=== PATIENT | male | born 1955 | race Caucasian/White ===

== ENCOUNTER 2022-09-15 13:26 | Observation (INO) ==
--- NOTE | 2022-09-15 13:36 | DR.SOBA ---
HPI Time Seen Time Seen by Provider: 09/15/22 13:34 Primary Care Physician Primary Care Physician: JEAN Complaints Chief Complaint Doctors Comments: 67 y/o male presents with worsening shortness of breath. + h/o weak heart, recently hoospitalized for fluid overload. Was switched from lasix to bumex, not helping. Having dyspnea with laying flat, only sleeps on 1 pillow. + dyspnea with exertion, legs have been swollen. 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 Denies fever, chills. No vomiting, diarrhea. + sinus congestion, loose cough. Chief Complaint:: PT'S DAUGHTER STATES PT WAS SEEN SATURDAY BY THE PLASTIC WELDER AND SINCE THEN HE HAS BEEN "FILLING FULL OF FLUID AND IS HAVING SOME BAD SOB." PT STATES" I FEEL LIKE I AM GOING TO ." PT HAS SOME EDEMA NOTED TO BOTH LOWER EXT. LUNGS CLEAR BILATERAL. COVID-19 Coronavirus risk:travel/contact w/high risk person: No Has patient experienced Coronavirus symptoms: No Reviewed Nurses Notes Reviewed: Yes Source History Provided: Patient Mode of Arrival Mode of Arrival: Ambulatory Timing Onset of Chief Complaint: 08/25/22 PMH PMH Past Medical History: Yes Past Medical History: Anemia, Angina, Anxiety, COPD, Depression, Hypertension and Renal Disease Past Surgical History: Yes Surgical History: Angioplasty/Stents, Cholecystectomy and Ortho Surgery Past Surgical History Comment: RIGHT KIDNEY REMOVED Family History History of Family Medical Conditions: Yes Family Medical History: [place], Coronary Artery Disease, Heart Failure and Sudden Cardiac Social History Does patient currently use any type of tobacco product: Yes Have you used tobacco products in the last 12 months: Yes Type of Tobacco Use: Cigarettes Does any household member use tobacco: Yes Alcohol Use: None Do you use any recreational Drugs:: No Lives With: Family Lives Where: Home Travel Risk Coronavirus risk:travel/contact w/high risk person: No Has patient experienced Coronavirus symptoms: No Infectious screening In the last 2 months have you had wt loss of >10#?: NO Have you had fever, night sweats or hemotysis?: No Have you traveled outside the country in the last 6 months?: No Isolation: Standard ROS Review of Systems Constitutional: Weakness; negative Fever Eyes: No Symptoms Reported Respiratoy: Short of Breath Cardiovascular: Edema Gastrointestinal/Abdominal: No Symptoms Reported Genitourinary: No Symptoms Reported Neurological: Weakness Musculoskeletal: No Symptoms Reported Integumentary: No Symptoms Reported Psychiatric: No Symptoms Reported All Other Systems: Reviewed and Negative PE Vital Signs Vitals: Temperature 98.2 F Pulse Rate 87 Respiratory Rate 25 Blood Pressure 150/84 O2 Sat by Pulse Oximetry 100 General General Appearance: Alert and In No Apparent Distress Eyes Eye exam: PERRL and EOMI Neck Neck Exam: Other (+ JVD); negative Tenderness Respiratory Respiratory Exam: Other (+ bibasilar rales, R > L); negative Accessory Muscle Use or Respiratory Distress Cardiovascular Cardiovascular Exam: Regular Rate, Normal Rhythm and Systolic Murmur (3/6) Abdominal Exam Abdominal Exam: Normal Bowel Sounds and Soft; negative Tenderness Extremities Extremities Exam: Edema (2+, bilateral lower) Neurologic Neurological Exam: Alert, Oriented X3 and CN II-XII Intact; negative Motor Sensory Deficit Skin Skin Exam: Warm and Dry COURSE Treatment Treatment: 67 y/o male with h/o cardiomyopathy, CHF, presents with apparent exacerbatiob of CHF. W/u initiated. CXR with cardiomegaly, + pulmonary edema, small R pleural effusion. Givne IV lasix, 40 mg. LAbs show BNP > 5,000. H/o sole kidney, due to previous nephrectomy for Ca. Recommend admission for further treatment. Discussed with Dr Willams, covering for admissions, accepts the admmission. ROR Labs Reviewed Result Diagrams: 09/15/22 13:35 09/15/22 13:35 Laboratory: WBC 6.4 X10^3/uL (3.6-10.0) 09/15/22 13:35 RBC 2.76 X10^6/uL (4.7-6.0) L 09/15/22 13:35 Hgb 8.2 g/dL (13.5-18.0) L 09/15/22 13:35 Hct 24.1 % (42.0-54.0) L 09/15/22 13:35 MCV 87.3 fL (80.0-100.0) 09/15/22 13:35 MCH 29.6 pg (27.0-34.0) 09/15/22 13:35 MCHC 33.9 g/dL (33.0-35.0) 09/15/22 13:35 RDW 15.1 % (11.6-16.5) 09/15/22 13:35 Plt Count 201 X10^3/uL (150.0-450.0) 09/15/22 13:35 MPV 7.6 fL (7.4-11.0) 09/15/22 13:35 Neut % (Auto) 81.0 % (42.0-75.0) H 09/15/22 13:35 Lymph % (Auto) 12.4 % (21.0-51.0) L 09/15/22 13:35 [place] % (Auto) 5.2 % (0.0-13.0) 09/15/22 13:35 Eos % (Auto) 1.0 % (0.9-2.9) 09/15/22 13:35 Baso % (Auto) 0.4 % (0.2-1.0) 09/15/22 13:35 Neut # (Auto) 5.2 x10^3/uL (2.2-4.8) H 09/15/22 13:35 Lymph # (Auto) 0.8 X10^3/uL (1.3-2.9) L 09/15/22 13:35 [place] # (Auto) 0.3 x10^3/uL (0.3-0.8) 09/15/22 13:35 Eos # (Auto) 0.1 x10^3/uL (0.0-0.2) 09/15/22 13:35 Baso # (Auto) 0.0 X10^3/uL (0.0-0.1) 09/15/22 13:35 Absolute Nucleated RBC 0.0 /100WBC 09/15/22 13:35 Sodium 139 mmol/L (136-145) 09/15/22 13:35 Corrected Sodium 145 mmol/L (136-145) 09/15/22 13:35 Potassium 3.8 mmol/L (3.5-5.1) 09/15/22 13:35 Chloride 100 mmol/L (98-107) 09/15/22 13:35 Carbon Dioxide 30.7 mmol/L (21-32) 09/15/22 13:35 BUN 30 mg/dL (7-18) H 09/15/22 13:35 Creatinine 2.11 mg/dL (0.70-1.30) H 09/15/22 13:35 Est GFR (MDRD) Af Amer 40 (>60) L 09/15/22 13:35 Est GFR (MDRD) Non-Af 33 (>60) L 09/15/22 13:35 Glucose 360 mg/dL (65-99) H 09/15/22 13:35 Calcium 8.3 mg/dL (8.5-10.1) L 09/15/22 13:35 Corrected Calcium 9.7 mg/dL (8.5-10.1) 09/15/22 13:35 Total Bilirubin 0.40 mg/dL (0.2-1.0) 09/15/22 13:35 AST 9 Units/L (15-37) L 09/15/22 13:35 ALT 10 Units/L (12-78) L 09/15/22 13:35 Alkaline Phosphatase 130 Units/L (46-116) H 09/15/22 13:35 Troponin I High Sens 39.8 ng/L (4.0-60.0) 09/15/22 13:35 B-Natriuretic Peptide > 5000 pg/mL (0-79) H* 09/15/22 13:35 Total Protein 6.8 g/dL (6.4-8.2) 09/15/22 13:35 Albumin 2.2 g/dL (3.4-5.0) L 09/15/22 13:35 Globulin 4.6 g/dL (2.5-4.5) H 09/15/22 13:35 Albumin/Globulin Ratio 0.5 Ratio (1.1-2.1) L 09/15/22 13:35 EKG Rate: 89 [place]: LAD Rhythm: NSR Block: RBBB and IVCD ST: Nonsp Opioid Opioid Risk Tool Age (Evans box if 16-45): No History of Preadolescent Sexual Abuse: No Total: 0 Total Score Risk Category: Low Risk Copyright: Carmelo RANDOLPH predicting aberrant behaviors Discharge Plan Diagnosis Discharge Problem: Acute exacerbation of CHF (congestive heart failure) Discharge Plan Patient Disposition: 09 ADMITTED INPATIENT Condition: Stable Prescriptions: No Action furosemide 40 mg tablet 1 tab PO BID carvedilol 6.25 mg tablet 1 tab PO BID clopidogrel 75 mg tablet 1 tab PO QDAY nitroglycerin 0.4 mg/hr patch 24 hour 1 patch BID nitroglycerin 0.4 mg tablet, sublingual 1 tab sublingual [id number], Q2HX4, Q4H PRN (Reason: Chest Pain) bumetanide 1 mg tablet 1 tab PO QDAY potassium chloride 10 mEq tablet,ER particles/crystals 1 tab PO BID Entresto 24-26 mg tablet 1 tab PO BID atorvastatin 80 mg tablet 1 tab PO QDAY amlodipine 5 mg tablet 1 tab PO QDAY tamsulosin 0.4 mg capsule 1 cap PO QDAY lansoprazole 30 mg capsule,delayed release(DR/EC) 1 cap PO QDAY levothyroxine 112 mcg tablet 1 tab PO QAM escitalopram oxalate 10 mg tablet 1 tab PO QDAY bupropion HCl 150 mg tablet extended release 24 hr 1 tab PO QAM insulin glargine [Lantus Solostar U-100 Insulin] 100 unit/mL (3 mL) insulin pen 15 unit SUBCUT BID Health Concerns: Post Hospitalization: new medications and changes needed to prevent readmission or further decline. Pt educated and given instructions on all concerns. Plan of Treatment: Continue with present treatment and follow up plan. Pt is to keep follow up ap pointment as instructed and take medications as ordered. Orders to Discharge Patient Discharge Orders: Transfer (Routine); Ordered 09/15/22 Ordered By: Carlos Alberto Spencer Follow ups/Referrals Follow ups/Referrals: MDMisc [Primary Care Provider] - 3 days
--- NOTE | 2022-09-15 13:55 | EKG ---
Test Reason : dyspnea Blood Pressure : */* mmHG Vent. Rate : 89 BPM Atrial Rate : * BPM P-R Int : * ms QRS Dur : 134 ms QT Int : 402 ms P-R-T Axes : * -63 50 degrees QTc Int : 489 ms Normal sinus rhythm Left axis deviation Right bundle branch block Abnormal ECG No previous ECGs available Confirmed by Lyle Penny ([id number]) on 09/15/2022 3:20:35 PM Referred By: Confirmed By: Lyle Penny
[2022-09-15 14:03] LABS: BASOPHILS % (AUTO) 0.4 % (0.2-1.0); EOSINOPHILS # (AUTO) 0.1 x10^3/uL (0.0-0.2); HEMATOCRIT 24.1 % (42.0-54.0); HEMOGLOBIN 8.2 g/dL (13.5-18.0); LYMPHOCYTES # (AUTO) 0.8 X10^3/uL (1.3-2.9); LYMPHOCYTES % (AUTO) 12.4 % (21.0-51.0); MEAN CORPUSCULAR HEMOGLOBIN 29.6 pg (27.0-34.0); MEAN CORPUSCULAR HGB CONC 33.9 g/dL (33.0-35.0); MEAN CORPUSCULAR VOLUME 87.3 fL (80.0-100.0); MEAN PLATELET VOLUME 7.6 fL (7.4-11.0); MONOCYTES # (AUTO) 0.3 x10^3/uL (0.3-0.8); MONOCYTES % (AUTO) 5.2 % (0.0-13.0); NEUTROPHILS # (AUTO) 5.2 x10^3/uL (2.2-4.8); RED BLOOD COUNT 2.76 X10^6/uL (4.7-6.0); RED CELL DISTRIBUTION WIDTH 15.1 % (11.6-16.5); WHITE BLOOD COUNT 6.4 X10^3/uL (3.6-10.0)
[2022-09-15 14:16] LABS: ALANINE AMINOTRANSFERASE 10 Units/L (12-78); ALBUMIN 2.2 g/dL (3.4-5.0); ALKALINE PHOSPHATASE 130 Units/L (46-116); ASPARTATE AMINO TRANSFERASE 9 Units/L (15-37); BLOOD UREA NITROGEN 30 mg/dL (7-18); CALCIUM 8.3 mg/dL (8.5-10.1); CARBON DIOXIDE 30.7 mmol/L (21-32); CHLORIDE 100 mmol/L (98-107); COR CA(FOR HYPOALB) 9.7 mg/dL (8.5-10.1); COR NA(FOR HYPERGLY) 145 mmol/L (136-145); CREATININE 2.11 mg/dL (0.70-1.30); SODIUM 139 mmol/L (136-145); TOTAL PROTEIN 6.8 g/dL (6.4-8.2); eGFR NON BLACK RACES 33 (>60)
[2022-09-15] MEDS ORDERED: LASIX IVP ONE ×2 (14:17→14:18)
[2022-09-15] MEDS ORDERED: TYLENOL 500 MG TAB EXTRA STRENGTH PO ONE ×2 (14:30→14:33)
--- NOTE | 2022-09-15 14:55 | RAD ---
HISTORYSOBSTUDYAP chestCOMPARISONNoneFINDINGSMarked cardiac enlargement with sternal wires. The pulmonary vessels are significantly distended and indistinct with a diffuse interstitial density throughout the lungs right greater than left.IMPRESSIONCardiomegaly with CHF/edema. Suspect small right pleural effusion.Electronically signed by: YASMEEN PABON (Sep 15, 2022 14:53:56)
[2022-09-15 18:13] VITALS: BMI 24.5
[2022-09-15] MEDS: NICOTINE PATCH TD SCH (19:00)
[2022-09-16] MEDS: NORCO 5/325 MG TAB PO PRN ×2 (01:44→13:29)
[2022-09-16 04:56] LABS: BASOPHILS % (AUTO) 0.2 % (0.2-1.0); EOSINOPHILS # (AUTO) 0.1 x10^3/uL (0.0-0.2); EOSINOPHILS % (AUTO) 1.1 % (0.9-2.9); HEMATOCRIT 21.1 % (42.0-54.0); HEMOGLOBIN 7.2 g/dL (13.5-18.0); LYMPHOCYTES # (AUTO) 0.9 X10^3/uL (1.3-2.9); LYMPHOCYTES % (AUTO) 14.5 % (21.0-51.0); MEAN CORPUSCULAR HEMOGLOBIN 29.4 pg (27.0-34.0); MEAN CORPUSCULAR HGB CONC 33.9 g/dL (33.0-35.0); MEAN CORPUSCULAR VOLUME 86.5 fL (80.0-100.0); MEAN PLATELET VOLUME 7.6 fL (7.4-11.0); MONOCYTES # (AUTO) 0.4 x10^3/uL (0.3-0.8); MONOCYTES % (AUTO) 6.4 % (0.0-13.0); NEUTROPHILS % (AUTO) 77.8 % (42.0-75.0); RED BLOOD COUNT 2.44 X10^6/uL (4.7-6.0); RED CELL DISTRIBUTION WIDTH 15.7 % (11.6-16.5); WHITE BLOOD COUNT 6.4 X10^3/uL (3.6-10.0)
[2022-09-16 05:19] LABS: ALBUMIN 1.9 g/dL (3.4-5.0); CALCIUM 8.2 mg/dL (8.5-10.1); CARBON DIOXIDE 29.1 mmol/L (21-32); COR CA(FOR HYPOALB) 9.9 mg/dL (8.5-10.1); CREATININE 1.98 mg/dL (0.70-1.30)
[2022-09-16] MEDS: NovoLIN R (or HumuLIN R) SC PRN ×2 (06:17→17:11)
[2022-09-16] MEDS: NICOTINE PATCH TD SCH (09:43)
--- NOTE | 2022-09-16 11:32 | DR.H&P ---
H&P - History & Physical for Day of: H&P Date: 09/15/22 - Chief Complaint Chief Complaint: SOB - History of Present Illness History of Present Illness: PT IS 67 WM, ER ADMISSION AFTER PRESENTING WITH CO SOB AND SWELLING. PT'S DAUGHTER STATES PT WAS SEEN SATURDAY BY THE LEG MAN AND SINCE THEN HE HAS BEEN "FILLING FULL OF FLUID AND IS HAVING SOME BAD SOB." PT STATES" I FEEL LIKE I AM GOING TO ." PT HAS SOME EDEMA NOTED TO BOTH LOWER EXT. PT REPORTS HE HAD CABG 8 YEAR AGO. - Past Medical History Past Medical History: Anemia, Angina, Anxiety, Arthritis, CHF, COPD, Depression, Hypertension, Renal Disease - Past Surgical History Surgical History: Angioplasty/Stents, Cholecystectomy, Ortho Surgery - Family History Family Medical History: Diabetes Mellitus, Coronary Artery Disease, Heart Failure, Hypertension - Social History Does patient currently use any type of tobacco product: Yes Have you used tobacco products in the last 12 months: Yes Type of Tobacco Use: Cigarettes Does any household member use tobacco: No Alcohol Use: None Drug Use: None - Medications Home Medications: No Known Allergies Allergy (Verified 09/15/22 13:27) CONTINUE taking the following medications amlodipine 5 mg tablet 1 tab PO QDAY 09/15/22 [History] atorvastatin 80 mg tablet 1 tab PO QDAY 09/15/22 [History] bumetanide 1 mg tablet 1 tab PO QDAY 09/15/22 [History] bupropion HCl 150 mg 24 hr tablet, extended release 1 tab PO QAM 09/15/22 [History] carvedilol 6.25 mg tablet 1 tab PO BID 09/15/22 [History] clopidogrel 75 mg tablet 1 tab PO QDAY 09/15/22 [History] escitalopram oxalate 10 mg tablet 1 tab PO QDAY 09/15/22 [History] furosemide 40 mg tablet 1 tab PO BID 09/15/22 [History] insulin glargine 100 unit/mL (3 mL) subcutaneous pen (Lantus Solostar U-100 Insulin) 15 unit subcut BID 09/15/22 [History] lansoprazole 30 mg capsule,delayed release 1 cap PO QDAY 09/15/22 [History] levothyroxine 112 mcg tablet 1 tab PO QAM 09/15/22 [History] nitroglycerin 0.4 mg sublingual tablet 1 tab sublingual [id number], Q2HX4, Q4H PRN Chest Pain 09/15/22 [History] nitroglycerin 0.4 mg/hr transdermal 24 hour patch 1 patch BID 09/15/22 [History] potassium chloride 10 mEq tablet,extended release(part/cryst) 1 tab PO BID 09/15/22 [History] sacubitril 24 mg-valsartan 26 mg tablet (Entresto) 1 tab PO BID 09/15/22 [History] tamsulosin 0.4 mg capsule 1 cap PO QDAY 09/15/22 [History] - Review of Systems Constitutional: No Symptoms Reported Eyes: No Symptoms Reported ENT: No Symptoms Reported Respiratory: Shortness of Breath, SOB with Excertion Cardiovascular: Edema Gastrointestinal: No Symptoms Reported Genitourinary: No Symptoms Reported Musculoskeletal: Neck Pain Skin: No Symptoms Reported Neurological: No Symptoms Reported - Physical Exam Vital Signs: Temperature 98.1 F Pulse Rate [Left Radial] 98 Pulse Rate 77 Respiratory Rate 20 Blood Pressure [Right Arm] 120/76 Blood Pressure 139/64 O2 Sat by Pulse Oximetry 91 Oriented: Normal Eyes: Normal Ear: Normal Nose: Normal Throat: Normal Respiratory: Wheezes Throughout (MILD DIFFUSE EXPIRATORY WHEEZES), RLL Diminished, LLL Diminished Cardiovascular: Normal, Edema : Normal Auscultation: Bowel Sounds: Normal Palpation: Normal Tenderness: Normal Skin: Decreased Turgur Musculoskeletal: Tender (CSPINE) Psychiatric: Anxiety Mood Description: Anxious Affect: Anxious Speech Pattern: Clear, Appropriate - Assessment/Plan (1) SOB (shortness of breath) Status: Acute Plan: ADMIT, CXR ON ADMISSION. SUPPLEMENTAL O2, IV LASIX, STRICT I&OS. VERIFY HOME MEDICATION, REPEAT AM CXR. CARDIAC ENZYMES AND EKG, CONTINUOUS TELEMETRY (2) CAD (coronary artery disease) Status: Acute (3) COPD (chronic obstructive pulmonary disease) Status: Acute (4) Hypertension Status: Acute (5) Acute exacerbation of CHF (congestive heart failure) Status: Acute - Allergies Allergies/Adverse Reactions: Allergies Allergy/AdvReac Type Severity Reaction Status Date / Time No Known Allergies Allergy Verified 09/15/22 13:27
--- NOTE | 2022-09-16 11:35 | PCM.PROG ---
Progress Note - Progress Note for Day of Date of Exam: 09/16/22 - Subjective Subjective: PT IS 67 WM, ER ADMISSION YESTERDAY WITH SOB AND EDEMA. PT HAS PMH OF CHF, CXR ON ADMISSION REVEALED CHF EXACERBATION. PT'S HOME MEDICATION INCLUDING STATIN, BB AND ENTRESTO RESUMED. PT IS ON IV LASIX WITH STRICT I&OS. PT WAS NOTED TO HAVE A DECREASED HGB THIS AM. WE ORDERED AN ANEMIA PANEL AND OCCULT STOOL. WILL START ON PO IRON REPLACEMENT AND CONSULT PHARMACY FOR IV IRON INFUSION. PT WILL HAVE REPEAT HBG AT 1300. - Past Medical Family Social History Past Med/Fam/Surg Hx: No changes since H&P Allergies: Allergies No Known Allergies Allergy (Verified 09/15/22 13:27) - Review of Systems ROS: No change since H&P - Vital Signs and I&O's Vital Signs: Temperature 98.1 F Pulse Rate [Left Radial] 98 Pulse Rate 77 Respiratory Rate 20 Blood Pressure [Right Arm] 120/76 Blood Pressure 139/64 O2 Sat by Pulse Oximetry 91 Intake and Output: Intake & Output 09/13/22 09/14/22 09/15/22 09/16/22 11:59 11:59 11:59 11:59 Intake Total 1000 / 1000 Output Total 200 / 200 Balance 800 / 800 - Physical Exam Oriented: Normal Eyes: Normal Ear: Normal Nose: Normal Throat: Normal Respiratory: Diminished, Wheezes Cardiovascular: Normal, Edema : Normal Auscultation: Bowel Sounds: Normal Tenderness: Normal Skin: Decreased Turgur Musculoskeletal: Tender (CSPINE) Psychiatric: Anxiety Mood Description: Anxious Affect: Anxious Speech Pattern: Clear, Appropriate - Laboratory and Diagnostics Result Diagrams: 09/16/22 04:38 09/16/22 04:38 Labs: Laboratory WBC 6.4 X10^3/uL (3.6-10.0) 09/16/22 04:38 RBC 2.44 X10^6/uL (4.7-6.0) L 09/16/22 04:38 Hgb 7.2 g/dL (13.5-18.0) L 09/16/22 04:38 Hct 21.1 % (42.0-54.0) L 09/16/22 04:38 MCV 86.5 fL (80.0-100.0) 09/16/22 04:38 MCH 29.4 pg (27.0-34.0) 09/16/22 04:38 MCHC 33.9 g/dL (33.0-35.0) 09/16/22 04:38 RDW 15.7 % (11.6-16.5) 09/16/22 04:38 Plt Count 196 X10^3/uL (150.0-450.0) 09/16/22 04:38 MPV 7.6 fL (7.4-11.0) 09/16/22 04:38 Neut % (Auto) 77.8 % (42.0-75.0) H 09/16/22 04:38 Lymph % (Auto) 14.5 % (21.0-51.0) L 09/16/22 04:38 [place] % (Auto) 6.4 % (0.0-13.0) 09/16/22 04:38 Eos % (Auto) 1.1 % (0.9-2.9) 09/16/22 04:38 Baso % (Auto) 0.2 % (0.2-1.0) 09/16/22 04:38 Neut # (Auto) 5.0 x10^3/uL (2.2-4.8) H 09/16/22 04:38 Lymph # (Auto) 0.9 X10^3/uL (1.3-2.9) L 09/16/22 04:38 [place] # (Auto) 0.4 x10^3/uL (0.3-0.8) 09/16/22 04:38 Eos # (Auto) 0.1 x10^3/uL (0.0-0.2) 09/16/22 04:38 Baso # (Auto) 0.0 X10^3/uL (0.0-0.1) 09/16/22 04:38 Absolute Nucleated RBC 0.0 /100WBC 09/16/22 04:38 Sodium 138 mmol/L (136-145) 09/16/22 04:38 Corrected Sodium 143 mmol/L (136-145) 09/16/22 04:38 Potassium 3.7 mmol/L (3.5-5.1) 09/16/22 04:38 Chloride 101 mmol/L (98-107) 09/16/22 04:38 Carbon Dioxide 29.1 mmol/L (21-32) 09/16/22 04:38 BUN 29 mg/dL (7-18) H 09/16/22 04:38 Creatinine 1.98 mg/dL (0.70-1.30) H 09/16/22 04:38 Est GFR (MDRD) Af Amer 43 (>60) L 09/16/22 04:38 Est GFR (MDRD) Non-Af 36 (>60) L 09/16/22 04:38 Glucose 317 mg/dL (65-99) H 09/16/22 04:38 Calcium 8.2 mg/dL (8.5-10.1) L 09/16/22 04:38 Corrected Calcium 9.9 mg/dL (8.5-10.1) 09/16/22 04:38 Iron 16 ug/dL (50-175) L 09/16/22 04:38 Transferrin 121 mg/dL (202-364) L 09/16/22 04:38 Ferritin 330 ng/mL (26-388) 09/16/22 04:38 Total Bilirubin 0.50 mg/dL (0.2-1.0) 09/16/22 04:38 AST 9 Units/L (15-37) L 09/16/22 04:38 ALT 9 Units/L (12-78) L 09/16/22 04:38 Alkaline Phosphatase 123 Units/L (46-116) H 09/16/22 04:38 Troponin I High Sens 39.8 ng/L (4.0-60.0) 09/15/22 13:35 B-Natriuretic Peptide > 5000 pg/mL (0-79) H* 09/16/22 04:38 Total Protein 6.0 g/dL (6.4-8.2) L 09/16/22 04:38 Albumin 1.9 g/dL (3.4-5.0) L 09/16/22 04:38 Globulin 4.1 g/dL (2.5-4.5) 09/16/22 04:38 Albumin/Globulin Ratio 0.5 Ratio (1.1-2.1) L 09/16/22 04:38 Vitamin B12 623 pg/mL (193-986) 09/16/22 04:38 Folate 11.9 ng/mL (>8.6) 09/16/22 04:38 - Plan (1) SOB (shortness of breath) Status: Acute Plan: REPEAT CXR, ANEMIA PANEL AND OCCULT STOOL. IRON REPLACEMENT THERAPY, FU H&H. SUPPLEMENTAL O2, IV LASIX, STRICT I&OS. VERIFY HOME MEDICATION,. CARDIAC ENZYMES AND EKG, CONTINUOUS TELEMETRY (2) CAD (coronary artery disease) Status: Acute (3) COPD (chronic obstructive pulmonary disease) Status: Acute (4) Hypertension Status: Acute (5) Acute exacerbation of CHF (congestive heart failure) Status: Acute
[2022-09-16] MEDS ORDERED: LEXAPRO ONE (12:25)
--- NOTE | 2022-09-16 12:46 | RAD ---
HISTORYCHF SOBSTUDYPortable AP chestCOMPARISONApril 2022FINDINGSSimilar cardiomegaly, extensive pulmonary vascular dilatation with bilateral pulmonary edema. Probable right pleural effusion. The findings remain consistent with advanced CHF.IMPRESSIONNo change.Electronically signed by: YASMEEN PABON (Sep 16, 2022 12:45:12)
[2022-09-16] MEDS: HEMOCYTE-PLUS PO SCH (13:18)
[2022-09-16] MEDS: ENTRESTO 24/26 MG TABLET PO SCH ×2 (13:18→21:14)
[2022-09-16] MEDS: PLAVIX PO SCH (13:18)
[2022-09-16] MEDS: LEXAPRO PO SCH (13:19)
[2022-09-16] MEDS: COREG TAB 6.25 MG PO SCH ×2 (13:19→21:14)
[2022-09-16] MEDS: PROTONIX INJ 40 MG VIAL IVP SCH (13:19)
[2022-09-16] MEDS: LASIX IVP SCH (16:53)
[2022-09-16] MEDS: MICRO K EXTEN CAP 10 MEQ PO SCH (17:02)
--- NOTE | 2022-09-16 20:41 | RAD ---
HISTORYddd, neck painSTUDYThree-view cervical spineCOMPARISONNoneFINDINGSAP and lateral radiographs of the cervical spine demonstrate normal alignment from the craniocervical junction to the level of T1. The central canal appears patent without posterior element abnormality. No prevertebral soft tissue swelling can be identified. The odontoid appears intact. The lateral masses of C1 align with the body of C2.Advanced degenerative disc disease at essentially all levels of the cervical spine are observed.IMPRESSIONAdvanced degenerative disc disease without acute abnormality identified.Electronically signed by: MARY BRAUN (Sep 16, 2022 20:40:29)
[2022-09-16] MEDS: RESTORIL CAP 15 MG PO PRN (21:14)
[2022-09-17 05:09] LABS: BASOPHILS % (AUTO) 0.4 % (0.2-1.0); EOSINOPHILS # (AUTO) 0.2 x10^3/uL (0.0-0.2); EOSINOPHILS % (AUTO) 2.8 % (0.9-2.9); HEMATOCRIT 20.9 % (42.0-54.0); HEMOGLOBIN 7.1 g/dL (13.5-18.0); LYMPHOCYTES # (AUTO) 0.9 X10^3/uL (1.3-2.9); LYMPHOCYTES % (AUTO) 15.9 % (21.0-51.0); MEAN CORPUSCULAR HEMOGLOBIN 29.5 pg (27.0-34.0); MEAN CORPUSCULAR VOLUME 86.8 fL (80.0-100.0); MEAN PLATELET VOLUME 7.8 fL (7.4-11.0); MONOCYTES # (AUTO) 0.4 x10^3/uL (0.3-0.8); MONOCYTES % (AUTO) 6.5 % (0.0-13.0); NEUTROPHILS # (AUTO) 4.1 x10^3/uL (2.2-4.8); NEUTROPHILS % (AUTO) 74.4 % (42.0-75.0); RED CELL DISTRIBUTION WIDTH 15.5 % (11.6-16.5); WHITE BLOOD COUNT 5.5 X10^3/uL (3.6-10.0)
[2022-09-17 05:22] LABS: ALBUMIN 1.8 g/dL (3.4-5.0); CALCIUM 8.2 mg/dL (8.5-10.1); CARBON DIOXIDE 28.7 mmol/L (21-32); CREATININE 1.89 mg/dL (0.70-1.30); TOTAL PROTEIN 5.8 g/dL (6.4-8.2)
[2022-09-17] MEDS ORDERED: NS 500 ML IV 500 ML IV ONE (08:25)
--- NOTE | 2022-09-17 08:56 | CT ---
HISTORYddd, neck painSTUDYCERVICAL SPINE W/O CONCOMPARISONCervical spine radiographs 09/16/2022TECHNIQUEMultiple CT axial images of the cervical spine were obtained without IV contrast. Coronal and sagittal images were reconstructed. Dose reduction techniques included Automated Exposure Control (AEC) and adjustment of mA and kV.FINDINGSMild dextroconvex scoliosis is centered in the upper thoracic spine. The usual lordosis is maintained.There is fusion of the C5 and C6 vertebra. This may be congenital. Otherwise the heights of the vertebral bodies are normal. No prevertebral soft tissue swelling. Minimal retrolisthesis of C4 on C5 and minimal anterior listhesis of C7 on T1 is degenerative. There is no fracture.Multilevel degenerative disc disease is present. This is most severe at C3-4, C4-5, and C6-7. Facet osteoarthritis is most severe in the upper cervical spine.There is minimal right foraminal stenosis at C6-7 from uncovertebral osteophytes. No significant left foraminal stenosis.No mastoid effusion. Chronic left maxillary sinusitis is partially imaged. Vascular calcifications in the carotid arteries. Small nodule seen in the thyroid, largest probably measures about 9 mm.Vague areas of opacity in upper right lung are present. This is probably too small to be seen on chest radiography. This could be atelectasis or pneumonia.IMPRESSION1. Multilevel degenerative changes2. Possible right upper lobe pneumonia3. Chronic left maxillary sinusitisElectronically signed by: Pancho Orozco (Sep 17, 2022 08:55:16)
[2022-09-17] MEDS: COREG TAB 6.25 MG PO SCH ×2 (08:58→20:42)
[2022-09-17] MEDS: WELLBUTRIN XL 150 MG (DAILY) PO SCH (08:58)
[2022-09-17] MEDS: SYNTHROID 112 mcg TAB PO SCH (08:58)
[2022-09-17] MEDS: HEMOCYTE-PLUS PO SCH (08:58)
[2022-09-17] MEDS: ENTRESTO 24/26 MG TABLET PO SCH ×2 (08:58→20:42)
[2022-09-17] MEDS: NICOTINE PATCH TD SCH (08:59)
[2022-09-17] MEDS ORDERED: BUMEX TAB 1 MG PO SCH (09:00)
[2022-09-17] MEDS ORDERED: PREVACID PO SCH (09:00)
[2022-09-17] MEDS: NORCO 5/325 MG TAB PO PRN ×3 (09:04→23:13)
[2022-09-17] MEDS: MICRO K EXTEN CAP 10 MEQ PO SCH ×2 (10:00→18:00)
[2022-09-17] MEDS: LASIX IVP SCH ×2 (10:00→18:00)
--- NOTE | 2022-09-17 11:04 | RAD ---
HISTORYCHFSTUDYAP chestCOMPARISONApril 2022FINDINGSHeart size remains enlarged with asymmetric pulmonary edema and right pleural effusion. There is no new abnormality or significant interval improvement.IMPRESSIONNo change.Electronically signed by: YASMEEN PABON (Sep 17, 2022 11:02:25)
[2022-09-17 12:24] LABS: HEMOGLOBIN 7.5 g/dL (13.5-18.0)
[2022-09-17] MEDS ORDERED: LEXAPRO ONE (12:54)
[2022-09-17] MEDS: NORVASC TAB 5 MG PO SCH (13:12)
[2022-09-17] MEDS: LEXAPRO PO SCH (13:12)
[2022-09-17] MEDS: PLAVIX PO SCH (13:12)
[2022-09-17] MEDS: FLOMAX PO SCH (13:12)
[2022-09-17] MEDS: LIPITOR TAB 80 MG PO SCH (13:13)
[2022-09-17] MEDS: PROTONIX INJ 40 MG VIAL IVP SCH (13:14)
[2022-09-17] MEDS: NovoLIN R (or HumuLIN R) SC PRN ×2 (17:30→20:59)
[2022-09-17] MEDS: RESTORIL CAP 15 MG PO PRN (20:42)
[2022-09-17] MEDS: LANTUS SC SCH (20:42)
[2022-09-17] MEDS: SNACK - Diabetic Appropriate PO SCH (21:00)
[2022-09-18 05:52] LABS: BASOPHILS % (AUTO) 0.3 % (0.2-1.0); EOSINOPHILS # (AUTO) 0.2 x10^3/uL (0.0-0.2); EOSINOPHILS % (AUTO) 3.6 % (0.9-2.9); HEMATOCRIT 22.2 % (42.0-54.0); HEMOGLOBIN 7.5 g/dL (13.5-18.0); LYMPHOCYTES # (AUTO) 0.8 X10^3/uL (1.3-2.9); LYMPHOCYTES % (AUTO) 16.5 % (21.0-51.0); MEAN CORPUSCULAR HGB CONC 33.8 g/dL (33.0-35.0); MEAN PLATELET VOLUME 7.8 fL (7.4-11.0); MONOCYTES # (AUTO) 0.4 x10^3/uL (0.3-0.8); MONOCYTES % (AUTO) 7.2 % (0.0-13.0); NEUTROPHILS # (AUTO) 3.6 x10^3/uL (2.2-4.8); NEUTROPHILS % (AUTO) 72.4 % (42.0-75.0); RED BLOOD COUNT 2.59 X10^6/uL (4.7-6.0); RED CELL DISTRIBUTION WIDTH 15.3 % (11.6-16.5)
[2022-09-18 05:58] LABS: ALANINE AMINOTRANSFERASE 9 Units/L (12-78); ALBUMIN 1.8 g/dL (3.4-5.0); ALKALINE PHOSPHATASE 150 Units/L (46-116); ASPARTATE AMINO TRANSFERASE 15 Units/L (15-37); BLOOD UREA NITROGEN 32 mg/dL (7-18); CARBON DIOXIDE 30.6 mmol/L (21-32); CHLORIDE 101 mmol/L (98-107); COR CA(FOR HYPOALB) 9.8 mg/dL (8.5-10.1); CREATININE 1.98 mg/dL (0.70-1.30); SODIUM 139 mmol/L (136-145); TOTAL PROTEIN 5.8 g/dL (6.4-8.2); eGFR NON BLACK RACES 36 (>60)
[2022-09-18] MEDS ORDERED: LEXAPRO ONE (07:12)
[2022-09-18] MEDS ORDERED: NS 500 ML IV 500 ML IV ONE (08:22)
[2022-09-18] MEDS: PROTONIX INJ 40 MG VIAL IVP SCH (08:49)
[2022-09-18] MEDS: NICOTINE PATCH TD SCH (08:49)
[2022-09-18] MEDS: WELLBUTRIN XL 150 MG (DAILY) PO SCH (08:50)
[2022-09-18] MEDS: HEMOCYTE-PLUS PO SCH (08:50)
[2022-09-18] MEDS: SYNTHROID 112 mcg TAB PO SCH (08:50)
[2022-09-18] MEDS: LASIX IVP SCH ×2 (08:50→16:37)
[2022-09-18] MEDS: ENTRESTO 24/26 MG TABLET PO SCH ×2 (08:50→20:38)
[2022-09-18] MEDS: COREG TAB 6.25 MG PO SCH ×2 (08:50→20:38)
[2022-09-18] MEDS: PLAVIX PO SCH (08:51)
[2022-09-18] MEDS: LEXAPRO PO SCH (08:51)
[2022-09-18] MEDS: NORVASC TAB 5 MG PO SCH (08:51)
[2022-09-18] MEDS: LIPITOR TAB 80 MG PO SCH (08:51)
[2022-09-18] MEDS: MICRO K EXTEN CAP 10 MEQ PO SCH ×2 (08:51→16:36)
[2022-09-18] MEDS: FLOMAX PO SCH (08:51)
[2022-09-18] MEDS: LANTUS SC SCH ×2 (10:38→20:45)
[2022-09-18] MEDS: NORCO 5/325 MG TAB PO PRN ×2 (13:38→20:42)
[2022-09-18] MEDS: SNACK - Diabetic Appropriate PO SCH (20:38)
[2022-09-18] MEDS: RESTORIL CAP 15 MG PO PRN (20:38)
[2022-09-18] MEDS: NovoLIN R (or HumuLIN R) SC PRN (20:46)
[2022-09-18] MEDS ORDERED: ZOFRAN INJ 4 MG VIAL IVP PRN (20:48)
[2022-09-19 06:09] LABS: BASOPHILS % (AUTO) 0.3 % (0.2-1.0); EOSINOPHILS # (AUTO) 0.2 x10^3/uL (0.0-0.2); EOSINOPHILS % (AUTO) 4.3 % (0.9-2.9); HEMATOCRIT 22.8 % (42.0-54.0); HEMOGLOBIN 7.8 g/dL (13.5-18.0); LYMPHOCYTES # (AUTO) 0.8 X10^3/uL (1.3-2.9); LYMPHOCYTES % (AUTO) 17.7 % (21.0-51.0); MEAN CORPUSCULAR HEMOGLOBIN 29.6 pg (27.0-34.0); MEAN CORPUSCULAR HGB CONC 34.4 g/dL (33.0-35.0); MEAN CORPUSCULAR VOLUME 86.3 fL (80.0-100.0); MEAN PLATELET VOLUME 7.7 fL (7.4-11.0); MONOCYTES # (AUTO) 0.3 x10^3/uL (0.3-0.8); MONOCYTES % (AUTO) 6.8 % (0.0-13.0); NEUTROPHILS # (AUTO) 3.3 x10^3/uL (2.2-4.8); NEUTROPHILS % (AUTO) 70.9 % (42.0-75.0); RED BLOOD COUNT 2.64 X10^6/uL (4.7-6.0); RED CELL DISTRIBUTION WIDTH 15.2 % (11.6-16.5); WHITE BLOOD COUNT 4.7 X10^3/uL (3.6-10.0)
[2022-09-19 06:12] LABS: ALANINE AMINOTRANSFERASE 10 Units/L (12-78); ALBUMIN 1.6 g/dL (3.4-5.0); ALKALINE PHOSPHATASE 150 Units/L (46-116); ASPARTATE AMINO TRANSFERASE 12 Units/L (15-37); BLOOD UREA NITROGEN 32 mg/dL (7-18); CALCIUM 7.7 mg/dL (8.5-10.1); CARBON DIOXIDE 30.2 mmol/L (21-32); CHLORIDE 104 mmol/L (98-107); COR CA(FOR HYPOALB) 9.6 mg/dL (8.5-10.1); CREATININE 1.95 mg/dL (0.70-1.30); SODIUM 139 mmol/L (136-145); TOTAL PROTEIN 5.6 g/dL (6.4-8.2); eGFR NON BLACK RACES 37 (>60)
[2022-09-19] MEDS ORDERED: LEXAPRO ONE (07:46)
[2022-09-19] MEDS: LASIX IVP SCH ×2 (08:54→17:38)
[2022-09-19] MEDS: LIPITOR TAB 80 MG PO SCH (08:54)
[2022-09-19] MEDS: PROTONIX INJ 40 MG VIAL IVP SCH (08:54)
[2022-09-19] MEDS: ENTRESTO 24/26 MG TABLET PO SCH ×2 (08:54→20:25)
[2022-09-19] MEDS: NICOTINE PATCH TD SCH (08:54)
[2022-09-19] MEDS: PLAVIX PO SCH (08:54)
[2022-09-19] MEDS: COREG TAB 6.25 MG PO SCH ×2 (08:55→20:25)
[2022-09-19] MEDS: WELLBUTRIN XL 150 MG (DAILY) PO SCH (08:55)
[2022-09-19] MEDS: SYNTHROID 112 mcg TAB PO SCH (08:55)
[2022-09-19] MEDS: FLOMAX PO SCH (08:55)
[2022-09-19] MEDS: MICRO K EXTEN CAP 10 MEQ PO SCH ×2 (08:55→17:38)
[2022-09-19] MEDS: HEMOCYTE-PLUS PO SCH (08:56)
[2022-09-19] MEDS: LEXAPRO PO SCH (08:57)
[2022-09-19] MEDS: NORVASC TAB 5 MG PO SCH (08:57)
[2022-09-19] MEDS: LANTUS SC SCH ×2 (12:04→20:27)
[2022-09-19] MEDS: NovoLIN R (or HumuLIN R) SC PRN (12:04)
--- NOTE | 2022-09-19 15:30 | RAD ---
CHEST, 1 VIEWHISTORY: SOB, CHFStudy: Single view of the chest.Comparison:NoneFindings:Cardiomegaly. No change in the appearance of right greater than left interstitial and airspace opacities. No change in loculated right effusion. Osseous structures demonstrate no acute abnormality.IMPRESSION:1. No change from prior.Electronically signed by: RONNELL HENDERSON (Sep 19, 2022 15:24:28)
[2022-09-19] MEDS: NORCO 5/325 MG TAB PO PRN (20:24)
[2022-09-19] MEDS: SNACK - Diabetic Appropriate PO SCH (20:28)
[2022-09-19 21:12] VITALS: BP 116/56
[2022-09-19] MEDS: RESTORIL CAP 15 MG PO PRN (21:19)
== END 2022-09-19 22:35 | disposition short-term general hospital (02) ==
LOC: ER 13:26 → MED/SURG 13:26
PROVIDERS: ADMIT Internal Medicine; ATTEND Internal Medicine
DX: I11.0 Hypertensive heart disease with heart failure; R60.0 Localized edema; M50.30 Other cervical disc degeneration, unspecified cervical region; J32.0 Chronic maxillary sinusitis; Z90.5 Acquired absence of kidney; R26.89 Other abnormalities of gait and mobility; R06.02 Shortness of breath; I50.9 Heart failure, unspecified; D64.89 Other specified anemias; R94.31 Abnormal electrocardiogram [ECG] [EKG]; M54.2 Cervicalgia; E11.65 Type 2 diabetes mellitus with hyperglycemia; R94.4 Abnormal results of kidney function studies; I25.10 Atherosclerotic heart disease of native coronary artery without angina pectoris; J44.9 Chronic obstructive pulmonary disease, unspecified